=== PATIENT | female | born 1980 | race Caucasian/White ===

== ENCOUNTER 2025-03-09 13:23 | Emergency (ER) | payer OTHER ==
[~2025-03-09] VITALS: Ht 162.6 cm; Wt 75.0 kg
[2025-03-09 13:25] VITALS: O2SAT 98
[2025-03-09] MEDS ORDERED: DICYCLOMINE 10 MG/5 ML ORAL SYR PO STA (13:47)
[2025-03-09] MEDS: DICYCLOMINE HCL 10MG CAPSULE PO NR (14:17)
[2025-03-09] MEDS: VISCOUS LIDOCAINE 2% 15 ML UDC PO STA (14:17)
[2025-03-09] MEDS: MAGNESIUM/ALUMINUM HYDROXIDE/SIMETHICONE 30ML UDC PO STA (14:17)
[2025-03-09] MEDS: FAMOTIDINE 20MG/2ML VIAL IV ONE (14:17)
[2025-03-09 15:39] LABS: BASOPHILS % 0.2 % (0.0-2.0); HEMATOCRIT. 40.4 % (36.0-48.0); HEMOGLOBIN. 12.8 g/dL (12.0-16.0); LYMPHOCYTES % 9.2 % (20.0-50.0); MEAN CORPUSCULAR HEMOGLOBIN 26.6 pg (28.0-32.0); MEAN CORPUSCULAR HGB CONC 31.8 g/dL (31.0-37.0); MEAN CORPUSCULAR VOLUME 83.5 fL (81.0-99.0); MEAN PLATELET VOLUME 9.9 fl (7.4-10.4); MONOCYTES % 5.3 % (2.0-8.0); NEUTROPHILS % 85.3 % (40.0-76.0); PLATELET 273 x1000/uL (130-400); RED BLOOD CELL COUNT 4.83 mill/uL (4.2-5.4); RED CELL DISTRIBUTION WIDTH 15.9 % (11.6-14.6); WHITE BLOOD COUNT 10.2 x1000/uL (4.5-11.0)
[2025-03-09 15:42] LABS: CHLORIDE 103 mEq/L (98-107); POTASSIUM 3.4 mEq/L (3.5-5.1); SODIUM 138 mEq/L (136-145)
[2025-03-09 15:43] LABS: CALCIUM 9.6 mg/dL (8.7-10.4); CARBON DIOXIDE 24 mEq/L (21-32)
[2025-03-09 15:48] LABS: CREATININE 0.5 mg/dL (0.6-1.0); GLUCOSE 125 mg/dL (70-105); UREA NITROGEN BLOOD < 5 mg/dL (9-23)
[2025-03-09 15:53] LABS: CLARITY URINE CLEAR (CLEAR); COLOR URINE YELLOW (YELLOW); GLUCOSE URINE NEGATIVE (NEGATIVE); KETONES URINE 4+ (NEGATIVE); LEUKOCYTE ESTERASE URINE NEGATIVE (NEGATIVE); NITRITE URINE NEGATIVE (NEGATIVE); OCCULT BLOOD URINE 1+ (NEGATIVE); PH URINE 6.5 (4.5-8.0); PROTEIN URINE NEGATIVE (NEGATIVE); SPECIFIC GRAVITY URINE 1.019 (1.005-1.030); UROBILINOGEN URINE 0.2 E.U./dL (0.2-1.0)
[2025-03-09] MEDS ORDERED: HALOPERIDOL LACTATE 5MG/ML VIAL IM ONE (16:00)
[2025-03-09 17:19] LABS: BACTERIA URINE 1+; SQUAMOUS EPITHELIAL CELL URINE 1+ /lpf (RARE/1+); WBC URINE 0-2 /hpf (0-2)
[2025-03-09] MEDS: HALOPERIDOL LACTATE 5MG/ML VIAL IM NR (18:21)
[2025-03-09] MEDS: MORPHINE SULFATE 4 MG/ML INJ (FOR IV/IM USE) IV ONE (19:03)
[2025-03-09] MEDS ORDERED: FAMO-135 MT (19:24)
[2025-03-09] MEDS ORDERED: ACET-2708 MT (19:24)
[2025-03-09 19:30] VITALS: BP 114/74; PULSE 88; RESP 17; TEMP 36.8; O2SAT 98
== END 2025-03-09 20:31 | disposition home or self-care (01) ==
LOC: ER 13:23 → EDBD 13:23 → ER 20:31
DX: R10.11 Right upper quadrant pain (principal); I10 Essential (primary) hypertension; Z87.19 Personal history of other diseases of the digestive system; Z98.84 Bariatric surgery status
CPT/HCPCS: 99285; 96374; 76705; 96375; 80048; 81003; 81025; 83690; 85025; 36415; 93005; 96372; J3490; J1630; J2270